=== PATIENT | male | born 1950 | race Caucasian/White ===

== ENCOUNTER → 2018-10-20 | Day surgery (SDC) | payer MEDICARE, OTHER ==
[2018-10-04 10:02] LABS: BASOPHILS % 0.3 % (0.0-1.0); EOSINOPHILS # (AUTO) 0.1 (0.0-0.4); EOSINOPHILS % 1.6 % (0.0-6.0); HEMATOCRIT 45.8 % (38.2-49.6); HEMOGLOBIN 14.9 g/dL (14.0-18.0); LYMPHOCYTES # (AUTO) 1.1 (1.0-3.2); MEAN CORPUSCULAR HGB CONC 32.5 g/dL (31-35); MEAN CORPUSCULAR VOLUME 86.1 fL (81-99); MONOCYTES # (AUTO) 0.6 (0.2-0.8); NEUTROPHILS # (AUTO) 4.3 (2.1-6.9); NEUTROPHILS % 69.8 % (38.7-80.0); PLATELET COUNT 186 x10e3/uL (140-360); RED BLOOD COUNT 5.32 x10e6/uL (4.3-5.7); RED CELL DISTRIBUTION WIDTH 12.4 % (11.7-14.4)
--- NOTE | 2018-10-04 10:09 | Diagnostic Imaging Report ---
EXAMINATION: CHEST 2 VIEWS INDICATION: Preop. Abdominal pain . Chest pain COMPARISON: None FINDINGS: TUBES and LINES: None. LUNGS: Lungs are well inflated. Lungs are clear. There is no evidence of pneumonia or pulmonary edema. PLEURA: No pleural effusion or pneumothorax. HEART AND MEDIASTINUM: The cardiomediastinal silhouette is unremarkable. BONES AND SOFT TISSUES: No acute osseous lesion. Soft tissues are unremarkable. UPPER ABDOMEN: No free air under the diaphragm. IMPRESSION: No acute thoracic abnormality. Signed by: Dr. Raoul Ewing M.D. on 10/04/2018 10:06 AM
[2018-10-04 10:30] LABS: ALANINE AMINOTRANSFERASE 21 IU/L (0-55); ALBUMIN 4.2 g/dL (3.5-5.0); ALBUMIN/GLOBULIN RATIO 1.4 (0.8-2.0); ALKALINE PHOSPHATASE 81 IU/L (40-150); BLOOD UREA NITROGEN 13 mg/dL (7-26); BUN/CREATININE RATIO 15 (6-25); CALCIUM 9.5 mg/dL (8.4-10.2); CARBON DIOXIDE 26 mmol/L (22-29); CHLORIDE 105 mmol/L (98-107); CREATININE, SERUM 0.84 mg/dL (0.72-1.25); EST GLOMERULAR FILTRATION RATE > 60 ML/MIN (60-); GLUCOSE 93 mg/dL (74-118); SODIUM 140 mmol/L (136-145)
[2018-10-04 10:42] LABS: INR 0.87; PROTHROMBIN TIME 12.6 seconds (11.9-14.5)
[2018-10-04 10:43] LABS: PARTIAL THROMBOPLASTIN TIME 28.7 seconds (23.8-35.5)
[~2018-10-20] MED LIST: BACITRACIN 50,000 UNIT VIAL ONE; BUPIVACAINE 0.25% 30ML SDV INJ ONE; CEFOXITIN SOD 1 GM VIAL ONE; CRESTOR10 MG PO; DEXAMETHASONE SOD PHOS INJ 4 MG/ML VIAL IV ONE; DICYCLOMINE HCL20 MG PO; DOXAZOSIN MESYLA2 MG PO; FENTANYL CITRATE/PF 100MCG/2 ML INJ ONE; KEFLEX500 MG PO; KETOROLAC TROMETHAMINE 30 MG/ML VIAL IV ONE; LIDOCAINE HCL 2% LOCAL INJ 5 ML SDV VIAL INJ ONE; MEPERIDINE HCL INJ 25 MG/ML VIAL ONE; MIDAZOLAM HCL 2 MG/2 ML VIAL ONE; MORPHINE SULFATE INJ 4 MG/ML INJ 1ML ONE; NORCO 10-325 T1 EACH PO; OMEPRAZOLE40 MG PO; ONDANSETRON HCL INJ 2MG/ML 2ML 2 MG/ML VIAL IV ONE; ONDANSETRON HCL INJ 2MG/ML 2ML 2 MG/ML VIAL ONE; POVIDONE IODINE 30 GM TUBE ONE; PROPOFOL IV EMULSION 10 MG/ML 20 ML VIAL IV ONE; ROCURONIUM BROMIDE 10 MG/ML 5ML VIAL IV ONE; SEVOFLURANE INHAL SOLN 250 ML PEN BTL INH ONE
--- OUTSIDE RECORDS SUMMARY | 2018-10-20 09:46 | XMS REPORT ---
Author Author [facility] Address Unknown Phone Unavailable Care Team Providers Care Customer Service Security Officer Name Role Phone ANJANA AMIN Unavailable Unavailable Problems This patient has no known problems. Allergies, Adverse Reactions, Alerts This patient has no known allergies or adverse reactions. Medications This patient has no known medications. Results Test Description Test Time Test Comments Text Results Atomic Results Result Comments CHEST 2 VIEWS 2018-10-04 10:05:00 [place] [id number] Patient Name: NAVJOT OROZCO MR #: [id number] : 1950 Age/Sex: 67/M Req #: [id number] Adm Physician: Ordered by: ANJANA AMIN MD Report #: [id number] Location: OR Room/Bed: Procedure: [id number] DX/CHEST 2 VIEWS Exam Date: 10/04/18 Exam Time: 0945 REPORT STATUS: Signed EXAMINATION: CHEST 2 VIEWS INDICATION: Preop. A bdominal pain . Chest pain COMPARISON: None FINDINGS: TUBES and LINES: None. LUNGS: Lungs are well inflated. Lungs are clear. There is no evidence of pneumonia or pulmonary edema. PLEURA: No pleural effusion or pneumothorax. HEART AND MEDIASTINUM: The cardiomediastinal silhouette is unremarkable. BONES AND SOFT TISSUES: No acute osseous lesion. Soft tissues are unremarkable. UPPER ABDOMEN: No free air under the diaphragm. IMPRESSION: No acute thoracic abnormality. Signed by: Dr. Raoul Ewing M.D. on 10/04/2018 10:06 AM Dictated By: RAOUL EWING MD, MD [id number] Transcribed By: DANNY on 10/04/18 1006 COPY TO: ANJANA AMIN MD
[2018-10-20 16:30] VITALS: BP 127/71
--- NOTE | 2018-10-20 16:41 | Operative Report ---
DATE OF PROCEDURE: October 20, 2018 PREOPERATIVE DIAGNOSIS: Left inguinal hernia. POSTOPERATIVE DIAGNOSES 1. Sliding left inguinal hernia. 2. 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 OPERATIONS PERFORMED 1. Sliding left inguinal hernia repair. 2. Excision of tumor of unknown behavior. 3. Excision of lipoma of the cord. ANESTHESIA: General. INDICATIONS: This patient is a 67-year-old white male who was initially seen by me for symptoms of an enlarged prostate and evaluation of microscopic hematuria. He was found to have a large tender left inguinal hernia at that time. He had a CT scan and cystoscopy that revealed no evidence of malignancy. He had multiple bilateral renal cysts. The hernia was becoming larger and painful and tender, and he then requested repair of the hernia. For further details, please refer to the history and physical. The procedure was done in the following fashion. DESCRIPTION OF PROCEDURE: The patient was taken to the operating room and placed under general anesthesia and dressed and draped with Hibiclens in the supine position in the usual fashion. A curvilinear incision was made in the direction of the skin crease in the left inguinal area. We could also palpate a bulge in the left groin and in the left scrotum from the hernia as well at that time on the left side. Once the incision was made, I elevated the skin edges with skin rakes and used electrocautery with cutting on 40 and coag on [address] way down through Ana Laura's fascia and to expose the external oblique aponeurosis. Once the external oblique aponeurosis was exposed, I could see where this massively dilated external ring was located with the hernia going through it. Self-retaining retractors were placed and a Edmondson retractor for exposure. I then made an incision in the external oblique aponeurosis in the direction of the fibers, elevated the two edges with hemostats, and then passed a Metzenbaum in both directions and then opened up the external oblique aponeurosis and the external ring. At this point in time, it became apparent that the spermatic cord was absolutely plastered to the hernial sac. I first mobilized the hernial sac with blunt finger dissection and passed a Nedra drain beneath it. I then began the slow tedious process of trying to dissect the spermatic cord off the hernial sac. The vas was identified, the cord contents were identified, and there was also a massive large lipoma of the cord which was making the dissection more difficult. Therefore, what I did was first I excised the lipoma of the spermatic cord by dissecting it off the hernial sac and taking it down to the internal ring and then dividing it using a hemostat, and the hemostat was controlled on the proximal end with two free ties of 0 Vicryl. My next step was to further dissect the vas and the spermatic cord off of the hernial sac until I had worked my way completely up to the level of the internal ring. At this point in time, I could see that the floor of the inguinal canal and the transversalis fascia were very attenuated, and I opened up the hernial sac anteromedially where I was sure I would not be getting into any bowel; and after I opened up the sac, it became apparent there was a great deal of fat inside. As I pushed the fat back into the peritoneal cavity, I could now readily determine that part of wall of this hernial sac consisted of sigmoid colon. I also found a yellow indurated tumor adherent to the internal wall of the hernial sac, and this was dissected away and sent for pathology. In view that I now had a sliding inguinal hernia with sigmoid colon as part of the wall of the sac, what I did was I closed the defect using a purse-string suture of 0 Vicryl. Care was taken to avoid injury to the bowel. I then pushed the sigmoid colon back up into the abdomen. I used a stick sponge or a peanut dissector in order to help keep the sigmoid colon out of my way while I was repairing the floor of the inguinal canal. In order to accomplish the repair of the floor of the inguinal canal and the direct part of the inguinal hernia, I did a Pieter's ligament repair. I used 0 PDS suture with popoff needle to take the conjoined tendon to the pubic tubercle and then the transversalis fascia and internal oblique to the Pieter's ligament and then to the same area to the Pieter's ligament and shelving portion of the Poupart's ligament, and then I continued bringing the conjoined tendon and internal oblique to the shelving portion of Poupart's ligament using the 0 PDS popoffs. Once this was accomplished, I then tied down the knots, and this revealed a good closure. The sigmoid colon was not coming out anymore, and the spermatic cord appeared to be intact and not strangulated. I then, in view of the enormity of the hernia, felt it was safest to put in a mesh. Therefore, a Prolene mesh was applied by suturing it down with 0 Vicryl to the pubic tubercle and using interrupted 0 Vicryl to suture it down to the floor of the inguinal canal that had newly been reconstructed, and two flaps were sutured together behind the spermatic cord. The spermatic cord was then placed over the mesh. The wound was again irrigated. I then closed the Ana Laura's fascia with interrupted 3-0 chromic. I then injected the incisions with 1% local Marcaine without epinephrine and then closed the skin with crescencio. A dressing was applied. The patient tolerated the procedure well and left the operating room in good condition with a scrotal support dressing. My estimated blood loss was about 5 to 10 mL. My plan at this time is for the patient to go home with an athletic supporter. There will be no sex for at least six weeks. He will have a return appointment to see me again in two weeks for removal of the crescencio, and he is going to be sent home on Keflex 500 mg one p.o. four times daily, number 40. He will also be sent home on Pisek 7.5 mg one p.o. q.6 hours p.r.n. pain, number 40. Job#: [id number]
== END | disposition home or self-care (01) ==
LOC: OR 09:44
PROVIDERS: ATTEND Urology
DX: K40.90 Unilateral inguinal hernia, without obstruction or gangrene, not specified as recurrent (principal); D49.89 Neoplasm of unspecified behavior of other specified sites; D17.6 Benign lipomatous neoplasm of spermatic cord; N28.1 Cyst of kidney, acquired; N40.1 Benign prostatic hyperplasia with lower urinary tract symptoms; R35.1 Nocturia; R39.15 Urgency of urination; N52.1 Erectile dysfunction due to diseases classified elsewhere; K64.4 Residual hemorrhoidal skin tags; I10 Essential (primary) hypertension; K21.9 Gastro-esophageal reflux disease without esophagitis; E78.00 Pure hypercholesterolemia, unspecified; Z01.810 Encounter for preprocedural cardiovascular examination; Z01.812 Encounter for preprocedural laboratory examination; Z01.818 Encounter for other preprocedural examination
CPT/HCPCS: 36415; 49525; 71046; 80053; 85025; 85610; 85730; 88304; 93005; C1781; J0694; J1100; J1885; J2001; J2175; J2250; J2270; J2405; J2704; 88302